=== PATIENT | female | born 1975 | race Caucasian/White ===

== ENCOUNTER 2018-02-08 12:00 | Emergency (ER) | payer OTHER ==
[~2018-02-08] VITALS: Ht 162.6 cm; Wt 80.8 kg
[~2018-02-08 12:00] MED LIST: ALPRAZOLAM ER1 MG PO; BUSPAR PO; CELEXA 20 MG TA20 M1 PO; CLONAZEPAM 1 MG1 M1 PO; CYCLOBENZAPRINE10 MG PO; DIVALPROEX SOD250 M3 PO; HYDROCODON-ACE1 EAC5 PO; HYOSCYAMINE0.375 M2 PO; IBUPROFEN 800800 M1; IMITREX 50 MG T50 M1; IMITREX 50 MG T50 M1 PO; MOBIC7.5 MG PO; NORCO 5-325 TA1 EACH PO; PHENERGAN 25 MG25 M1; SEROQUEL400 MG PO; TIZANIDINE HCL4 MG PO; TOPIRAGEN25 MG PO; TRAMADOL 50 MG50 MG PO; TRAZODONE 150150 M1; WELLBUTRIN SR150 MG PO; ZOFRAN4 MG PO
[2018-02-08 12:23] LABS: URINE BILIRUBIN NEGATIVE (Negative); URINE BLOOD NEGATIVE (Negative); URINE CLARITY CLEAR; URINE COLOR STRAW; URINE GLUCOSE-RANDOM NEGATIVE (Negative); URINE KETONES NEGATIVE (Negative); URINE LEUKOCYTES-REFLEX NEGATIVE (Negative); URINE NITRITE-REFLEX NEGATIVE (Negative); URINE PROTEIN NEGATIVE (Negative); URINE UROBILINOGEN 0.2 E.U./dl (0.2-1.0)
[2018-02-08 12:26] LABS: ABSOLUTE BASOPHILS 0.1 thou/uL (0.0-0.2); ABSOLUTE EOSINOPHILS 0.2 thou/uL (0.0-0.7); ABSOLUTE LYMPHOCYTES 3.5 thou/uL (0.8-5.3); ABSOLUTE MONOCYTES 0.5 thou/uL (0.0-1.2); ABSOLUTE NEUTROPHILS 4.8 thou/uL (1.6-8.1); BASOPHILS 0.7 %; EOSINOPHILS 1.7 %; HEMATOCRIT 38.4 % (37.0-47.0); HEMOGLOBIN 12.9 gm/dL (12.0-15.0); LYMPHOCYTES 38.6 %; MCH 29.9 pg (26.0-34.0); MCHC 33.5 g/dL (28.0-37.0); MCV 89.1 fL (80.0-100.0); MONOCYTES 5.8 %; MPV 7.2 fl. (7.2-11.1); NUCLEATED RBCS 0 /100WBC; PLATELET COUNT* 288 thou/uL (150-400); POLYS 53.2 %; RDW-CV 13.6 % (10.5-14.5)
[2018-02-08 12:42] LABS: ALBUMIN 3.8 g/dL (3.4-5.0); CALCIUM 8.6 mg/dL (8.5-10.1); CREATININE 0.6 mg/dL (0.6-1.3); POTASSIUM 3.8 mmol/L (3.5-5.1); TOTAL BILIRUBIN 0.2 mg/dL (<0.1-1.0); TOTAL PROTEIN 6.8 g/dL (6.4-8.2)
[2018-02-08 13:02] VITALS: BP 131/81
== END 2018-02-08 13:03 | disposition home or self-care (01) ==
LOC: M.ERS 12:00
PROVIDERS: Physician Assistant Surgical
DX: R10.9 Unspecified abdominal pain (principal); R11.2 Nausea with vomiting, unspecified; F41.9 Anxiety disorder, unspecified; F32.9 Major depressive disorder, single episode, unspecified; F17.200 Nicotine dependence, unspecified, uncomplicated; Z88.0 Allergy status to penicillin